=== PATIENT | male | born 1955 | race Caucasian/White ===

== ENCOUNTER 2021-07-13 11:05 | Outpatient (CLI) | payer OTHER, SELFPAY ==
--- NOTE | ~2021-07-13 | XR_ITS ---
XR knee LT 2V DATE: 07/13/2021 12:02 INDICATION: Bilateral knee pain, osteoarthritis TECHNIQUE: Standing AP and lateral views COMPARISON: None FINDINGS: Small suprapatellar knee joint effusion is suggested. There is joint space narrowing and prominent periarticular spurring at the patellofemoral compartment . There is severe joint space narrowing at the medial compartment and mild periarticular spurring. There is mild particular spurring of the lateral tibial plateau. There is varus deformity. No fracture or dislocation, periosteal reaction or bone destruction, chondrocalcinosis or radiopaque in particular loose body is noted. 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
--- NOTE | ~2021-07-13 | XR_ITS ---
XR knee RT 2V DATE: 07/13/2021 12:02 INDICATION: Bilateral knee pain, osteoarthritis TECHNIQUE: Standing AP and lateral views COMPARISON: None FINDINGS: There is severe joint space narrowing and mild particular spurring at the medial compartmen t. There is varus deformity. There is periarticular spurring at the patellofemoral joint. Mild suprapatellar knee joint effusion is suggested. No fracture or dislocation, periosteal reaction or bone destruction, radiopaque intra-articular loose body or chondrocalcinosis is noted. IMPRESSION: Osteoarthritis involving primarily the medial and patellofemoral compartments Mild knee joint effusion is suggested Reviewed, dictated and finalized at location A. 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
== END 2021-07-13 11:06 ==
PROVIDERS: PCP Family Medicine
DX: M17.0 Bilateral primary osteoarthritis of knee (principal); M25.461 Effusion, right knee; M25.462 Effusion, left knee
CPT/HCPCS: 73560